=== PATIENT | female | born 1935 | race African-American/Black ===

== ENCOUNTER 2017-02-14 08:39 | Outpatient (CLI) | payer MEDICARE ==
[2017-02-14 10:02] LABS: ALT (SGPT) 8 U/L (0-55); AST (SGOT) 12 U/L (5-34); Albumin 4.1 g/dL (3.4-4.8); Alkaline Phosphatase 60 U/L (40-150); Anion Gap 15 mmol/L (10-20); BUN (Urea Nitrogen) 10 mg/dL (9.8-20.1); Bilirubin, Total 0.9 mg/dL (0.2-1.2); Calc. Creatinine Clearance 0 mL/min (70-130); Calcium 9.5 mg/dL (7.8-10.44); Carbon Dioxide 31 mmol/L (23-31); Cardiac Risk 3.2 (Less than 4.5); Chloride 100 mmol/L (98-107); Cholesterol 227 mg/dL (< 200 Desired); Estimated GFR-MDRD 81; Globulin 2.6 g/dL (2.4-3.5); Glucose 92 mg/dL (83-110); HDL Cholesterol 72 mg/dL (>60 Neg Risk); LDL Cholesterol, Calculated 133 mg/dL; Potassium 4.4 mmol/L (3.5-5.1); Protein, Total 6.7 g/dL (5.8-8.1); Sodium 142 mmol/L (136-145); Triglycerides 111 mg/dL (Less than 150)
[2017-02-14 10:39] LABS: #Lymphocytes 2.6 thou/uL (1.20-3.40); #Neutrophils 5.3 thou/uL (1.40-6.50); %Basophils 0.5 % (0.0-1.0); %Eosinophils 0.5 % (0.0-10.0); %Lymphocytes 28.9 % (21.0-51.0); %Monocytes 10.9 % (0.0-10.0); %Neutrophils 59.2 % (42.0-75.0); Hemoglobin 15.7 g/dL (12.0-16.0); Mean Corpuscular HGB CONC 31.7 g/dL (32.0-36.0); Mean Corpuscular Hemoglobin 28.5 pg (27.0-31.0); Mean Corpuscular Volume 90.1 fl (81.0-99.0); Mean Platelet Volume 8.7 fL (7.4-10.4); Platelet Count 248 thou/uL (130-400); RBC Distribution Width 14.7 % (11.5-14.5); Red Blood Cell (RBC) Count 5.51 mill/uL (4.20-5.40)
== END 2017-02-14 08:40 | disposition home or self-care (01) ==
LOC: HPCALD 08:39
PROVIDERS: ATTEND Family Medicine
DX: Z00.00 Encounter for general adult medical examination without abnormal findings (principal); E78.5 Hyperlipidemia, unspecified
CPT/HCPCS: 36415; 80053; 80061; 85025

== ENCOUNTER 2017-09-20 11:13 | Emergency (ER) | payer MEDICARE ==
[2017-09-20] MEDS ORDERED: methylPREDNISolone Sod Succ/PF 125 MG/2 ML VIAL ONE (11:31)
[2017-09-20 11:40] LABS: #Basophils 0.1 thou/uL (0.0-0.2); #Eosinphils 0.1 thou/uL (0.0-0.7); #Neutrophils 5.8 thou/uL (1.40-6.50); %Basophils 1.1 % (0.0-1.0); %Eosinophils 1.4 % (0.0-10.0); %Lymphocytes 29.9 % (21.0-51.0); %Monocytes 9.6 % (0.0-10.0); %Neutrophils 58.1 % (42.0-75.0); Hemoglobin 14.5 g/dL (12.0-16.0); Mean Corpuscular HGB CONC 32.2 g/dL (32.0-36.0); Mean Corpuscular Hemoglobin 28.1 pg (27.0-31.0); Mean Corpuscular Volume 87.4 fl (81.0-99.0); Platelet Count 276 thou/uL (130-400); RBC Distribution Width 13.2 % (11.5-14.5); Red Blood Cell (RBC) Count 5.16 mill/uL (4.20-5.40)
[2017-09-20 11:41] LABS: Base Excess 12.4 mEq/L (-2 - +2); pH (venous) 7.48 (7.35-7.45)
[2017-09-20 11:42] LABS: Hemoglobin (Hb) 14.9 g/dL (11.7-16.1)
[2017-09-20 11:49] LABS: ALT (SGPT) 8 U/L (8-55); AST (SGOT) 16 U/L (5-34); Albumin 3.9 g/dL (3.4-4.8); Alkaline Phosphatase 72 U/L (40-150); Anion Gap 15 mmol/L (10-20); BUN (Urea Nitrogen) 5 mg/dL (9.8-20.1); Bilirubin, Total 0.5 mg/dL (0.2-1.2); Calc. Creatinine Clearance 0 mL/min (70-130); Calcium 9.3 mg/dL (7.8-10.44); Carbon Dioxide 37 mmol/L (23-31); Chloride 95 mmol/L (98-107); Estimated GFR-MDRD Greater than 90; Glucose 90 mg/dL (83-110); Protein, Total 6.9 g/dL (6.0-8.3); Sodium 144 mmol/L (136-145)
[2017-09-20 11:51] LABS: CKMB 2.2 ng/mL (0-6.6); Potassium 2.7 mmol/L (3.5-5.1); Troponin I 0.012 ng/mL (< 0.028)
[2017-09-20] MEDS ORDERED: Potassium Chloride 20 MEQ TAB ONE (12:00)
[2017-09-20] MEDS ORDERED: Potassium Chloride 20 MEQ/100 ML PREMIX BAG ONE (12:00)
--- NOTE | 2017-09-20 14:55 | RAD ---
FRONTAL RADIOGRAPH CHEST: DATE: 09/20/17. COMPARISON: 07/10/16. HISTORY: Short of breath. FINDINGS: There is mild pulmonary vascular congestion. There is mild perihilar and bibasilar interstitial prom inence which may signify mild interstitial edema in the proper clinical setting. There is no pneumot horax, lobar consolidation, or alveolar edema. Stable prominence of the cardiac silhouette noted. IMPRESSION: Prominent cardiac silhouette with pulmonary vascular congestion and perihilar interstitial prominence as detailed above. POS: [place]
== END 2017-09-20 13:36 | disposition short-term general hospital (02) ==
LOC: BURERS 11:13
DX: J44.1 Chronic obstructive pulmonary disease with (acute) exacerbation (principal); E78.5 Hyperlipidemia, unspecified; F17.210 Nicotine dependence, cigarettes, uncomplicated; I10 Essential (primary) hypertension; K21.9 Gastro-esophageal reflux disease without esophagitis; Z79.899 Other long term (current) drug therapy
CPT/HCPCS: 71010; 80053; 82553; 82805; 83880; 84484; 85025; 96365; 96375; J2930; J3480; J7620

== ENCOUNTER 2019-03-15 16:19 | Emergency (ER) | payer MEDICARE, MEDICAID ==
[2019-03-15] MEDS ORDERED: methylPREDNISolone Sod Succ/PF 125 MG/2 ML VIAL ONE (16:30)
[2019-03-15 16:36] LABS: #Basophils 0.1 thou/uL (0.0-0.2); #Lymphocytes 1.3 thou/uL (1.20-3.40); #Monocytes 0.9 thou/uL (0.11-0.59); #Neutrophils 4.2 thou/uL (1.40-6.50); %Basophils 1.2 % (0.0-1.0); %Eosinophils 0.3 % (0.0-10.0); %Lymphocytes 19.6 % (21.0-51.0); %Monocytes 13.4 % (0.0-10.0); %Neutrophils 65.6 % (42.0-75.0); Hemoglobin 15.4 g/dL (12.0-16.0); Mean Corpuscular HGB CONC 30.7 g/dL (32.0-36.0); Mean Platelet Volume 9.5 fL (7.4-10.4); Platelet Count 176 thou/uL (130-400); RBC Distribution Width 13.2 % (11.5-14.5); Red Blood Cell (RBC) Count 5.71 mill/uL (4.20-5.40); White Blood Cell (WBC) Count 6.5 thou/uL (4.8-10.8)
[2019-03-15 16:53] LABS: ALT (SGPT) 11 U/L (8-55); AST (SGOT) 23 U/L (5-34); Albumin 4.3 g/dL (3.4-4.8); Alkaline Phosphatase 68 U/L (40-150); Anion Gap 15 mmol/L (10-20); BUN (Urea Nitrogen) 7 mg/dL (9.8-20.1); Bilirubin, Total 0.5 mg/dL (0.2-1.2); Calc. Creatinine Clearance 0 mL/min (70-130); Calcium 9.2 mg/dL (7.8-10.44); Carbon Dioxide 28 mmol/L (23-31); Chloride 99 mmol/L (98-107); Estimated GFR-MDRD 90; Globulin 3.2 g/dL (2.4-3.5); Glucose 102 mg/dL (83-110); Potassium 3.7 mmol/L (3.5-5.1); Protein, Total 7.5 g/dL (6.0-8.3); Sodium 138 mmol/L (136-145)
[2019-03-15] MEDS ORDERED: Piperacillin/Tazobactam 4.5 GM VIAL ONE (17:10)
[2019-03-15] MEDS ORDERED: Sodium Chloride 0.9% 100 ML ONE (17:10)
[2019-03-15] MEDS ORDERED: Acetaminophen 500 MG TAB ONE (17:10)
--- NOTE | 2019-03-15 17:39 | RAD ---
PORTABLE CHEST: Date: 03-15-19 An AP portable film at 1632 is compared with an 09-20-17 exam. FINDINGS: The heart size is unchanged. There is no vascular congestion, edema, or pleural effusion. The lungs a re hyperexpanded but clear. There is a little haziness or blunting in the right costophrenic angle, b ut I cannot absolutely confirm pathology here at this time. There is certainly no edema or congestion of the vessels. If symptoms continue, then a PA and lateral view to show the right base better could be helpful. IMPRESSION: Hyperexpanded lungs but no definite acute findings. See above. POS: HOME
== END 2019-03-15 18:45 | disposition short-term general hospital (02) ==
LOC: BURERS 16:19
DX: J18.1 Lobar pneumonia, unspecified organism (principal); J44.1 Chronic obstructive pulmonary disease with (acute) exacerbation; K21.9 Gastro-esophageal reflux disease without esophagitis; E78.5 Hyperlipidemia, unspecified; I10 Essential (primary) hypertension; F17.210 Nicotine dependence, cigarettes, uncomplicated; Z79.899 Other long term (current) drug therapy; Z79.51 Long term (current) use of inhaled steroids
CPT/HCPCS: 36415; 71045; 80053; 83605; 83880; 84484; 85025; 87040; 93005; 96365; 96375; J2543; J2930; J3370; J3490; J7620

== ENCOUNTER 2019-06-03 11:13 | Emergency (ER) | payer MEDICARE, MEDICAID ==
[2019-06-03 11:46] LABS: #Eosinphils 0.1 thou/uL (0.0-0.7); #Lymphocytes 1.5 thou/uL (1.20-3.40); #Monocytes 0.9 thou/uL (0.11-0.59); #Neutrophils 6.1 thou/uL (1.40-6.50); %Basophils 0.4 % (0.0-1.0); %Eosinophils 0.8 % (0.0-10.0); %Lymphocytes 17.2 % (21.0-51.0); %Monocytes 10.7 % (0.0-10.0); %Neutrophils 70.8 % (42.0-75.0); Hemoglobin 14.6 g/dL (12.0-16.0); Mean Corpuscular HGB CONC 31.3 g/dL (32.0-36.0); Mean Corpuscular Hemoglobin 27.5 pg (27.0-31.0); Mean Corpuscular Volume 87.8 fL (78.0-98.0); Mean Platelet Volume 9.7 fL (7.4-10.4); Platelet Count 206 thou/uL (130-400); RBC Distribution Width 13.1 % (11.5-14.5); Red Blood Cell (RBC) Count 5.29 mill/uL (4.20-5.40); White Blood Cell (WBC) Count 8.7 thou/uL (4.8-10.8)
[2019-06-03] MEDS ORDERED: methylPREDNISolone Sod Succ/PF 125 MG/2 ML VIAL ONE (11:49)
[2019-06-03 12:00] LABS: INR-International Normal Ratio 1.1; PTT 38.6 SEC (22.9-36.1); Prothrombin Time 14.3 SEC (12.0-14.7)
[2019-06-03 12:05] LABS: Bicarbonate (HCO3v) 36.6 mmol/L (22.0-28.0); CO2 Tension (PvCO2) 54.4 mmHg (40.0-50.0); Calcium, Ionized 1.14 mmol/L (See Comments:); Chloride 96 mmol/L (98-107); Hemoglobin - Calc 16.6 g/dL (12.0-16.0); Potassium 2.8 mmol/L (3.5-5.1); Sodium 141 mmol/L (138-145); T. Carbon Dioxide 38.3 mmol/L (22.0-28.0); vO2 Saturation-calc 88.5 % (60.0-85.0)
[2019-06-03 12:10] LABS: ALT (SGPT) Less than 7 U/L (8-55); AST (SGOT) 12 U/L (5-34); Alkaline Phosphatase 74 U/L (40-150); Anion Gap 14 mmol/L (10-20); BUN (Urea Nitrogen) Less than 4 mg/dL (9.8-20.1); Calc. Creatinine Clearance 0 mL/min (70-130); Calcium 9.4 mg/dL (7.8-10.44); Carbon Dioxide 34 mmol/L (23-31); Chloride 97 mmol/L (98-107); Estimated GFR-MDRD Greater than 90; Globulin 2.9 g/dL (2.4-3.5); Glucose 105 mg/dL (83-110); Protein, Total 6.9 g/dL (6.0-8.3); Sodium 142 mmol/L (136-145)
[2019-06-03] MEDS ORDERED: Potassium Chloride 20 MEQ/100 ML PREMIX BAG ONE (12:28)
--- NOTE | 2019-06-03 17:28 | RAD ---
PORTABLE CHEST: Date: 06/03/19 An AP portable film at 1147 hours is compared with the 03/15/19 study. The heart size is stable. There is no vascular congestion or edema. The mediastinum is unremarkable. There has been no adverse change since the prior exam. IMPRESSION: Stable exam, showing no acute findings. POS: HOME
[2019-06-04 11:26] LABS: Actual Bicarbonate (HCO3a) 34.8 mEq/L (22-28); Base Excess (BEa) 8.4 mEq/L (-2.0 to +3.0); CO2 Tension 55.1 mmHg (35.0-45.0); Calcium, Ionized 1.17 mmol/L (1.12-1.30); Carboxyhemoglobin (COHb) 1.5 gm% (0.0-3.0); Hemoglobin (Hb) 14.4 g/dL (12.0-16.0); O2 Tension (PaO2) 63.2 mmHg (> 60.0); Potassium - ABG Lab 3.12 mmol/L (3.70-5.30); pH, Arterial 7.42 (7.35-7.45)
[2019-06-04 11:29] LABS: Puncture Site LBA
== END 2019-06-03 13:12 | disposition short-term general hospital (02) ==
LOC: BURERS 11:13
DX: J44.1 Chronic obstructive pulmonary disease with (acute) exacerbation (principal); K21.9 Gastro-esophageal reflux disease without esophagitis; E78.5 Hyperlipidemia, unspecified; I10 Essential (primary) hypertension; F17.210 Nicotine dependence, cigarettes, uncomplicated; Z79.51 Long term (current) use of inhaled steroids; Z79.899 Other long term (current) drug therapy
CPT/HCPCS: 71045; 80053; 82330; 82435; 82803; 82805; 83880; 84132; 84295; 84484; 85014; 85025; 85610; 85730; 87804; 93005; 94660; 94760; 96365; 96367; 96375; J2930; J3480; J7620

== ENCOUNTER 2019-09-08 12:15 | Inpatient (IN) | payer MEDICARE, MEDICAID ==
[2019-09-08] MEDS ORDERED: Piperacillin/Tazobactam 4.5 GM VIAL ONE (12:52)
[2019-09-08] MEDS ORDERED: Acetaminophen 500 MG TAB ONE (12:52)
[2019-09-08] MEDS ORDERED: Sodium Chloride 0.9% 100 ML ONE (12:53)
[2019-09-08 12:56] LABS: #Basophils 0.1 thou/uL (0.0-0.2); #Lymphocytes 1.2 thou/uL (1.20-3.40); #Monocytes 1.3 thou/uL (0.11-0.59); #Neutrophils 10.3 thou/uL (1.40-6.50); %Basophils 0.9 % (0.0-1.0); %Lymphocytes 9.6 % (21.0-51.0); %Monocytes 9.7 % (0.0-10.0); %Neutrophils 79.9 % (42.0-75.0); Hemoglobin 14.8 g/dL (12.0-16.0); Mean Corpuscular HGB CONC 31.4 g/dL (32.0-36.0); Mean Corpuscular Hemoglobin 27.2 pg (27.0-31.0); Mean Corpuscular Volume 86.6 fL (78.0-98.0); Mean Platelet Volume 10.5 fL (7.4-10.4); Platelet Count 216 thou/uL (130-400); RBC Distribution Width 13.2 % (11.5-14.5); Red Blood Cell (RBC) Count 5.45 mill/uL (4.20-5.40); White Blood Cell (WBC) Count 12.9 thou/uL (4.8-10.8)
[2019-09-08 13:02] LABS: Base Excess-Venous 4.7 mmol/L (-2.0 to 3.0); Bicarbonate (HCO3v) 30.6 mmol/L (22.0-28.0); CO2 Tension (PvCO2) 48.5 mmHg (40.0-50.0); Calcium, Ionized 1.14 mmol/L (See Comments:); Chloride 100 mmol/L (98-107); Hemoglobin - Calc 16.8 g/dL (12.0-16.0); Potassium 3.4 mmol/L (3.5-5.1); Sodium 138 mmol/L (138-145); T. Carbon Dioxide 32.1 mmol/L (22.0-28.0)
[2019-09-08 13:07] LABS: ALT (SGPT) 8 U/L (8-55); AST (SGOT) 13 U/L (5-34); Albumin 4.2 g/dL (3.4-4.8); Alkaline Phosphatase 79 U/L (40-110); Anion Gap 18 mmol/L (10-20); BUN (Urea Nitrogen) 8 mg/dL (9.8-20.1); Bilirubin, Total 1.9 mg/dL (0.2-1.2); Calc. Creatinine Clearance 0 mL/min (70-130); Calcium 9.7 mg/dL (7.8-10.44); Carbon Dioxide 27 mmol/L (23-31); Chloride 98 mmol/L (98-107); Estimated GFR-MDRD Greater than 90; Globulin 3.3 g/dL (2.4-3.5); Glucose 96 mg/dL (83-110); Potassium 3.6 mmol/L (3.5-5.1); Protein, Total 7.5 g/dL (6.0-8.3); Sodium 139 mmol/L (136-145)
[2019-09-08 13:14] LABS: Bilirubin Small (Negative); Blood, Urine Moderate (Negative); Clarity Clear (Clear); Glucose, Urine (Dipstick) Negative (Negative); Leukocyte Negative (Negative); Nitrite Negative (Negative); Protein, Urine (Dipstick) 30 mg/dL (Neg-Trace)
[2019-09-08 13:21] LABS: Squamous Epithelial 0-3 HPF (0-3); WBC/HPF 0-3 HPF (0-3)
[2019-09-08 13:22] LABS: Bacteria/HPF 2+ HPF (None Seen); Mucous/LPF 4+ LPF (<2+)
[2019-09-08] MEDS ORDERED: methylPREDNISolone Sod Succ/PF 125 MG/2 ML VIAL ONE (14:00)
[2019-09-08] MEDS ORDERED: Oseltamivir 75 MG CAP ONE (14:00)
[2019-09-08] MEDS ORDERED: Acetaminophen 325 MG TAB PO PRN (17:19)
[2019-09-08] MEDS ORDERED: Nicotine 21 MG PATCH TD SCH (18:00)
[2019-09-08] MEDS ORDERED: Colchicine 0.6 MG TAB PO SCH ×3 (18:00→21:00)
--- NOTE | 2019-09-08 19:07 | RAD ---
PORTABLE CHEST: 09/08/19 An AP portable film at 1239 is compared with an 06/03/19 study. Emphysematous changes are present as usual. The heart size is normal for an AP film. There is no joel estive change. There might be a very small amount of pleural fluid in the lung bases, but this is unc ertain. Minor basilar haziness is no different than before. I do not see any acute infiltrate to conf idently diagnose pneumonia. IMPRESSION: Chronic changes but no definite acute findings. POS: HOME
--- NOTE | 2019-09-08 19:11 | RAD ---
LEFT FOOT THREE VIEWS: 09/08/19 No acute fracture or periosteal reaction was seen. There may have been an old injury at the base of t he proximal phalanx of the great toe. A calcaneal spur is present. IMPRESSION: Old changes, but no acute findings. POS: HOME
[2019-09-08] MEDS: Piperacillin/Tazobactam 3.375 GM in Sodium Chloride 0.9% 100 ML IVPB SCH (19:38)
[2019-09-08] MEDS ORDERED: Oseltamivir 75 MG CAP PO SCH (21:00)
[2019-09-08] MEDS ORDERED: Albuterol Sulfate 2.5 mg/3 ml Neb NEB SCH (21:00)
[2019-09-08] MEDS: methylPREDNISolone Sod Succ/PF 125 MG/2 ML VIAL IVP SCH (21:20)
[2019-09-08] MEDS: guaiFENesin ER 600 MG TAB PO SCH (21:21)
[2019-09-08] MEDS: Atorvastatin Calcium 10 MG TAB PO SCH (21:22)
--- NOTE | 2019-09-08 21:50 | HP ---
CHIEF COMPLAINT: Dyspnea with left foot pain. HISTORY OF PRESENT ILLNESS: An 84-year-old female with underlying oxygen- dependent COPD, presented to the [facility] Emergency Department earlier today with two primary complaints including worsening respiratory status including shortness of breath and intermittent cough along with focal pain to the dorsum of the left foot, progressing over the last 1 to 2 weeks of unknown etiology. The patient denies having any notable injury to cause the pain located to her left foot. She does have localized swelling to the area of her pain; however, there is no erythema or ecchymosis, but there is tenderness to palpation. The patient's daughters were present and they reported the patient had gradually worsening pain to this area to the point that she has been unable to effectively bear weight on the foot as of today. In regard to the patient's respiratory status, she did have flu testing in the emergency department, which was negative. Further testing did reveal a leukocytosis with left shift along with some bacteria in her urine. Her chest x -ray is concerning for bibasilar pneumonia as a preliminary read. She was provided Solu-Medrol IV, Levaquin, Zosyn and DuoNeb treatment in the emergency department. Her vital signs were notably abnormal with a T-max of 101.0 along with mild tachycardia and mild tachypnea. Secondary to the patient's respiratory status, she has been admitted for further care in regard to COPD exacerbation and pneumonia. PAST MEDICAL HISTORY: Include COPD, for which she is oxygen dependent, hypertension, dyslipidemia, memory impairment. PAST SURGICAL HISTORY: Cholecystectomy. FAMILY HISTORY: Noncontributory. SOCIAL HISTORY: The patient has been a chronic smoker and continues to do so. Denies EtOH or illicit drug use. ALLERGIES: NO KNOWN DRUG ALLERGIES. CURRENT MEDICATIONS: Include; 1. Ventolin inhaler q.4 hours p.r.n. 2. Atorvastatin 20 mg at bedtime. 3. Losartan 50 mg daily. 4. Meloxicam 15 mg daily. 5. Protonix 40 mg daily. 6. Daliresp 500 mg daily. REVIEW OF SYSTEMS: GENERAL: The patient complains of fever. She denies body aches. EARS, NOSE, AND THROAT: Complains of nasal congestion. Denies sore throat. CARDIOVASCULAR: Denies chest pain, or palpitations. RESPIRATORY: Complains of shortness of breath and cough. GASTROINTESTINAL: Denies abdominal pain, nausea, vomiting, diarrhea, or constipation. GENITOURINARY: Denies dysuria. MUSCULOSKELETAL: Complains of focal pain to the dorsum of the left foot. DERMATOLOGIC: Denies rash. NEUROLOGIC: Denies headache. LABORATORY DATA: White blood cell count is 12.9, hemoglobin is 14.8, hematocrit 47.2, platelets 216. Sodium 139, potassium 3.6, BUN is 8, creatinine 0.73, GFR is greater than 90, glucose 96, lactic acid 1.0, AST 13, ALT 8. Troponin is less than 0.010. BNP is 52.5. Flu testing was negative. Urine shows 2+ bacteria, but negative for nitrites or leukocyte esterase, moderate blood with ketones present. IMAGING: Pending radiological read in regard to her chest x-ray and left foot x -ray. PHYSICAL EXAMINATION: VITAL SIGNS: Temperature is 98.9, pulse is 86, respiratory rate 18, oxygen is 94% on 2 L, blood pressure is 126/61. GENERAL: The patient is alert and oriented, in no acute distress. Diaphoretic to her back. HEENT: She is hard of hearing. Eyes, conjunctivae are clear. Sclerae are clear. Extraocular muscles are intact bilaterally. Normocephalic and atraumatic. Moist mucous membranes. No oropharyngeal erythema. NECK: Supple without lymphadenopathy. CARDIOVASCULAR: She has distant heart sounds. Regular rate and rhythm. Normal S1, S2 without murmurs. RESPIRATORY: Diminished breath sounds throughout. She has a prolonged expiratory phase with end-expiratory wheezes. She has faint crackles to the bilateral bases. She has a nasal cannula in place. GASTROINTESTINAL: Soft, nontender to palpation. No masses. EXTREMITIES: No clubbing or cyanosis. She has edema with tenderness to palpation to the dorsum of the left foot without erythema or ecchymosis. MUSCULOSKELETAL: Crepitus to bilateral knees. SKIN: No rashes. NEUROLOGIC: Nonfocal with cranial nerves 2 through 12 grossly intact. ASSESSMENT AND PLAN: 1. Chronic obstructive pulmonary disease exacerbation. The patient is pending chest x-ray reading with concern for pneumonia and thus she has been started on empiric antibiotics with Levaquin and Zosyn. She has scheduled nebulized treatments and will resume Trelegy, which she takes at home. She has supplemental oxygen at baseline. We will provide the patient with an incentive spirometer. We will also order PT and OT so that the patient can mobilize to prevent physical deconditioning. 2. Urinary tract infection. We will follow the patient's urine culture. 3. Left foot pain. Official x-ray is pending; however, preliminary read did not show concern for fracture. I suspect she could have gout and we will treat accordingly with colchicine and as noted, she will be receiving IV Solu-Medrol as well. I will check the uric acid level with morning labs. 4. Hypertension. The patient is hemodynamically stable with blood pressure at goal. Resume losartan. 5. Dyslipidemia. We will resume the patient's statin. 6. Prophylaxis. The patient will be continued on her Protonix for GI prophylaxis and Lovenox for DVT prophylaxis. She also had SCDs in place. 7. Code status is full. Job ID: [id number] MTDD
[2019-09-09] MEDS: Piperacillin/Tazobactam 3.375 GM in Sodium Chloride 0.9% 100 ML IVPB SCH (01:24)
[2019-09-09 05:35] LABS: #Lymphocytes 0.7 thou/uL (1.20-3.40); #Monocytes 0.5 thou/uL (0.11-0.59); #Neutrophils 9.2 thou/uL (1.40-6.50); %Basophils 0.3 % (0.0-1.0); %Lymphocytes 6.7 % (21.0-51.0); %Monocytes 4.3 % (0.0-10.0); %Neutrophils 88.7 % (42.0-75.0); Hemoglobin 13.8 g/dL (12.0-16.0); Mean Corpuscular HGB CONC 31.2 g/dL (32.0-36.0); Mean Corpuscular Volume 86.4 fL (78.0-98.0); Mean Platelet Volume 11.6 fL (7.4-10.4); Platelet Count 195 thou/uL (130-400); RBC Distribution Width 13.3 % (11.5-14.5); Red Blood Cell (RBC) Count 5.12 mill/uL (4.20-5.40); White Blood Cell (WBC) Count 10.4 thou/uL (4.8-10.8)
[2019-09-09 05:48] LABS: ALT (SGPT) Less than 7 U/L (8-55); AST (SGOT) 11 U/L (5-34); Albumin 3.5 g/dL (3.4-4.8); Alkaline Phosphatase 63 U/L (40-110); Anion Gap 13 mmol/L (10-20); BUN (Urea Nitrogen) 10 mg/dL (9.8-20.1); Calc. Creatinine Clearance 0 mL/min (70-130); Calcium 9.1 mg/dL (7.8-10.44); Carbon Dioxide 28 mmol/L (23-31); Chloride 100 mmol/L (98-107); Estimated GFR-MDRD 88; Globulin 2.9 g/dL (2.4-3.5); Glucose 140 mg/dL (83-110); Potassium 3.3 mmol/L (3.5-5.1); Protein, Total 6.4 g/dL (6.0-8.3); Sodium 138 mmol/L (136-145); Uric Acid 2.5 mg/dL (2.6-6.0)
[2019-09-09] MEDS: methylPREDNISolone Sod Succ/PF 125 MG/2 ML VIAL IVP SCH ×3 (06:30→20:31)
[2019-09-09] MEDS ORDERED: Potassium Chloride 20 MEQ TAB PO SCH (07:45)
[2019-09-09] MEDS: guaiFENesin ER 600 MG TAB PO SCH ×2 (08:16→20:30)
[2019-09-09] MEDS: Enoxaparin Sodium 40 MG/0.4 ML SYRINGE SC SCH (08:17)
[2019-09-09] MEDS: Losartan Potassium 50 MG TAB PO SCH (08:17)
[2019-09-09] MEDS: Meloxicam 7.5 MG TAB PO SCH (08:17)
[2019-09-09] MEDS: Nicotine 21 MG PATCH TD SCH (08:18)
[2019-09-09] MEDS ORDERED: Non-Formulary Item 1 EACH (Fluticasone/Umeclidin/Vilanter [Trelegy Ellipta 100-62.5-25] 1 IH SCH (09:00)
[2019-09-09] MEDS: ROFLUMILAST 500 MG PO SCH (10:38)
[2019-09-09] MEDS: VILANTER INH SCH (10:40)
[2019-09-09] MEDS: FLUTICASONE INH SCH (10:40)
[2019-09-09] MEDS: UMECLIDIN INH SCH (10:40)
[2019-09-09] MEDS ORDERED: Prevnar 13-Val Conj/PF 0.5 ML SYRINGE IM ONE (16:15)
[2019-09-09 19:08] VITALS: BMI 23.4
[2019-09-09] MEDS: Atorvastatin Calcium 10 MG TAB PO SCH (20:30)
[2019-09-10 05:00] LABS: #Basophils 0.1 thou/uL (0.0-0.2); #Lymphocytes 0.7 thou/uL (1.20-3.40); #Monocytes 0.7 thou/uL (0.11-0.59); %Basophils 0.5 % (0.0-1.0); %Lymphocytes 5.4 % (21.0-51.0); %Monocytes 4.9 % (0.0-10.0); %Neutrophils 89.2 % (42.0-75.0); Hemoglobin 12.8 g/dL (12.0-16.0); Mean Corpuscular HGB CONC 32.2 g/dL (32.0-36.0); Mean Corpuscular Hemoglobin 27.8 pg (27.0-31.0); Mean Corpuscular Volume 86.3 fL (78.0-98.0); Mean Platelet Volume 10.5 fL (7.4-10.4); Platelet Count 206 thou/uL (130-400); RBC Distribution Width 13.2 % (11.5-14.5); Red Blood Cell (RBC) Count 4.63 mill/uL (4.20-5.40); White Blood Cell (WBC) Count 13.4 thou/uL (4.8-10.8)
[2019-09-10 05:18] LABS: Anion Gap 13 mmol/L (10-20); BUN (Urea Nitrogen) 15 mg/dL (9.8-20.1); Calc. Creatinine Clearance 50 mL/min (70-130); Calcium 8.8 mg/dL (7.8-10.44); Carbon Dioxide 28 mmol/L (23-31); Chloride 101 mmol/L (98-107); Estimated GFR-MDRD 81; Glucose 145 mg/dL (83-110); Potassium 3.5 mmol/L (3.5-5.1); Sodium 138 mmol/L (136-145)
[2019-09-10] MEDS: methylPREDNISolone Sod Succ/PF 125 MG/2 ML VIAL IVP SCH ×2 (05:47→12:59)
[2019-09-10] MEDS: Saccharomyces boulardii 250 MG CAP PO SCH (08:17)
[2019-09-10] MEDS: guaiFENesin ER 600 MG TAB PO SCH (08:17)
[2019-09-10] MEDS: Nicotine 21 MG PATCH TD SCH (08:17)
[2019-09-10] MEDS: Meloxicam 7.5 MG TAB PO SCH (08:17)
[2019-09-10] MEDS: Losartan Potassium 50 MG TAB PO SCH (08:18)
[2019-09-10] MEDS: Enoxaparin Sodium 40 MG/0.4 ML SYRINGE SC SCH (08:18)
[2019-09-10] MEDS: Potassium Chloride 20 MEQ TAB PO SCH (08:18)
[2019-09-10] MEDS: ROFLUMILAST 500 MG PO SCH (08:22)
[2019-09-10] MEDS: FLUTICASONE INH SCH (08:24)
[2019-09-10] MEDS: VILANTER INH SCH (08:24)
[2019-09-10] MEDS: UMECLIDIN INH SCH (08:24)
--- NOTE | 2019-09-10 15:01 | RAD ---
CHEST 2 VIEWS: Date: 09/10/19 Comparison made with the 09/08/19 portable film. There seems to be a little extra streaking in the right base, and on the lateral view, there appears to be some retrocardiac streaking. A small infiltrate here is suspected. COPD is present. The heart i s upper normal to mildly enlarged, but there are no congestive changes. There are no large pleural ef fusions. IMPRESSION: Suspicion of a right basilar retrocardiac infiltrate. POS: HOME
[2019-09-11] MEDS: methylPREDNISolone Sod Succ/PF 125 MG/2 ML VIAL IVP SCH ×3 (00:51→13:35)
[2019-09-11] MEDS: Atorvastatin Calcium 10 MG TAB PO SCH (00:52)
[2019-09-11] MEDS: guaiFENesin ER 600 MG TAB PO SCH ×2 (00:52→08:58)
[2019-09-11] MEDS ORDERED: guaiFENesin ER 600 MG TAB PO SCH (01:00)
[2019-09-11] MEDS ORDERED: Atorvastatin Calcium 10 MG TAB PO SCH (01:00)
[2019-09-11 05:23] LABS: #Lymphocytes 0.6 thou/uL (1.20-3.40); #Monocytes 0.3 thou/uL (0.11-0.59); #Neutrophils 7.1 thou/uL (1.40-6.50); %Basophils 0.3 % (0.0-1.0); %Lymphocytes 6.9 % (21.0-51.0); %Monocytes 3.7 % (0.0-10.0); %Neutrophils 89.1 % (42.0-75.0); Hemoglobin 12.7 g/dL (12.0-16.0); Mean Corpuscular HGB CONC 32.1 g/dL (32.0-36.0); Mean Corpuscular Hemoglobin 27.4 pg (27.0-31.0); Mean Corpuscular Volume 85.4 fL (78.0-98.0); Mean Platelet Volume 9.4 fL (7.4-10.4); Platelet Count 221 thou/uL (130-400); RBC Distribution Width 13.3 % (11.5-14.5); Red Blood Cell (RBC) Count 4.64 mill/uL (4.20-5.40)
[2019-09-11 05:32] LABS: ALT (SGPT) 8 U/L (8-55); AST (SGOT) 11 U/L (5-34); Albumin 3.3 g/dL (3.4-4.8); Alkaline Phosphatase 50 U/L (40-110); Anion Gap 13 mmol/L (10-20); BUN (Urea Nitrogen) 19 mg/dL (9.8-20.1); Bilirubin, Total 0.2 mg/dL (0.2-1.2); Calc. Creatinine Clearance 53 mL/min (70-130); Calcium 8.7 mg/dL (7.8-10.44); Carbon Dioxide 27 mmol/L (23-31); Chloride 106 mmol/L (98-107); Estimated GFR-MDRD 87; Globulin 2.5 g/dL (2.4-3.5); Glucose 121 mg/dL (83-110); Potassium 3.7 mmol/L (3.5-5.1); Protein, Total 5.8 g/dL (6.0-8.3); Sodium 142 mmol/L (136-145)
[2019-09-11 06:24] VITALS: TEMP 97.8
[2019-09-11] MEDS: Saccharomyces boulardii 250 MG CAP PO SCH (08:55)
[2019-09-11] MEDS: Nicotine 21 MG PATCH TD SCH (08:55)
[2019-09-11] MEDS: Enoxaparin Sodium 40 MG/0.4 ML SYRINGE SC SCH (08:57)
[2019-09-11] MEDS: Potassium Chloride 20 MEQ TAB PO SCH (08:58)
[2019-09-11] MEDS: Meloxicam 7.5 MG TAB PO SCH (08:59)
[2019-09-11] MEDS: Losartan Potassium 50 MG TAB PO SCH (08:59)
[2019-09-11] MEDS: ROFLUMILAST 500 MG PO SCH (09:00)
[2019-09-11] MEDS: UMECLIDIN INH SCH (09:06)
[2019-09-11] MEDS: FLUTICASONE INH SCH (09:06)
[2019-09-11] MEDS: VILANTER INH SCH (09:06)
[2019-09-11 17:01] VITALS: BP 149/70
--- NOTE | 2019-09-13 07:23 | DIS ---
DATE OF ADMISSION: 09/08/2019 DATE OF DISCHARGE: 09/11/2019 ADMISSION DIAGNOSES: 1. Chronic obstructive pulmonary disease exacerbation. 2. Urinary tract infection. 3. Left foot pain. 4. Hypertension. 5. Dyslipidemia. 6. Tobacco abuse. DISCHARGE DIAGNOSES: 1. Chronic obstructive pulmonary disease exacerbation. 2. Urinary tract infection, ruled out. 3. Microscopic hematuria. 4. Left foot pain, resolved. 5. Hypertension. 6. Dyslipidemia. 7. Hypokalemia. 8. Campylobacter enteritis. 9. Community-acquired pneumonia, right lower lobe. 10. Tobacco abuse. ATTENDING PHYSICIAN: Dr. Devin Che with Dr. Venus West covering physician on the date of discharge. PROCEDURES: 1. Chest x-ray from the date of admission showing chronic changes, but no definite acute findings. 2. Foot x-ray from the date of admission on the left showing old changes, but no acute findings. 3. Chest x-ray on September 10, 2019, with suspicion of a right basilar retrocardiac infiltrate. 4. Blood culture x2 negative at 48 hours. 5. Urine culture per straight cath negative at 36 hours. 6. Influenza A and B negative. 7. C difficile antigen and toxins negative. 8. Campylobacter positive. 9. Shiga toxin negative x2. HISTORY AND PHYSICAL: Please see dictated report from Dr. Devin Che from the date of admission. HOSPITAL COURSE: Ms. Jean-Baptiste is an 84-year-old female with a past medical history of chronic respiratory failure from COPD, who is home O2 dependent, who presented to the [facility] with a chief complaint of left foot pain and swelling. Upon presentation, the patient had suspected possible infiltrate on her x-ray and suspicion for COPD acute exacerbation. She was placed on Levaquin and methylprednisolone per IV, continued on oxygen and her chronic pulmonary medications, which included Trelegy and Daliresp. The patient's respiratory status improved. Due to the positioning of the infiltrate, questioning with the patient and daughter regarding the possibility of aspiration was performed. The patient had had a previous speech therapy evaluation in May with no special diet instructions other than sitting up to eat. Therefore, this was not performed at this admission. The patient did not display cough with meals per nursing. Her respiratory status improved, and on the date of her discharge, her lungs are clear with diminished lung sounds at the bases. She has no wheezing or increased work of breathing. The patient also had a suspected urinary tract infection with a urinalysis that was performed via straight cath, that showed 4 to 6 rbc's and bacteria. Subsequently, urine culture was negative. It is recommended that she have a repeat urinalysis with microscopic evaluation performed in the outpatient setting. It is possible that this was just secondary to dehydration and trauma from the cath. The patient's left foot pain was evaluated with no acute findings per x-ray. Her uric acid level was normal. She takes meloxicam at home and this was continued. Her foot pain and swelling resolved during her hospitalization, such that she could resume weightbearing without pain and was back to her normal ambulatory ability with walker assist. The patient had low potassium during her hospitalization, which was corrected with oral potassium. She will be continued on supplementation at discharge. The patient had some loose stools/diarrhea during her hospitalization and stool studies were performed, which were negative except for positive Campylobacter. Again, the patient was covered with Levaquin. She will continue this treatment along with a probiotic. Regarding her right basilar pneumonia, the patient will be seeing her repair tech in followup on September 16. She will keep that appointment and will also need a followup chest x-ray in approximately 4 to 6 weeks to confirm clearing of infiltrate. The patient has a history of chronic hypertension, which remained stable during her hospitalization without any adjustments to her home regimen. Dyslipidemia. The patient was continued on her statin during her admission. The patient has a history of tobacco abuse/dependence. She wore a nicotine patch while hospitalized and would like to go home on this. She has been advised not to smoke while on the nicotine patch and I have prescribed a taper with the 21 mg patch for a full 6 weeks, followed by 2 weeks on the 14 mg patch, and then 2 weeks on a 7 mg patch. The patient previously had home health, it sounds like through the [facility] home visit program. She would like to resume this for correction and evaluation for possible needs of PT/OT/ST. I will send a message to her PCP's team to coordinate this on Friday as they are uncertain of the name of the agency at the present time. DISPOSITION: Discharged to home. CONDITION: Good. MEDICATIONS: 1. Mucinex 600 mg p.o. b.i.d. 2. Trelegy Ellipta one inhalation daily. 3. Ventolin per nebulizer q.4 hours. 4. Lipitor 20 mg p.o. at bedtime. 5. Daliresp p.o. daily. 6. Pantoprazole 40 mg p.o. daily. 7. Meloxicam 15 mg p.o. daily. 8. Cozaar 50 mg daily. 9. Prednisone 50 mg p.o. q.a.m. x5 days. 10. Florastor 250 mg p.o. daily x3 days. 11. K-Dur 20 mEq p.o. q.a.m. 12. Levaquin 750 mg p.o. for the last dose on September 12, to complete a 5-day course. 13. Nicoderm CQ 21 mg transdermal daily x6 weeks, then 14 mg transdermal daily x2 weeks, then 7 mg transdermal daily. FOLLOWUP: Follow up with Dr. Che in approximately 7 to 10 days and with her repair tech as scheduled on September 16, 2019. Job ID: [id number]
--- NOTE | 2019-09-14 03:39 | PQF ---
Edith Jean-Baptisteard ROBERT AVELAR DO [id number] CLINICAL DOCUMENTATION CLARIFICATION FORM: POST DISCHARGE Addendum to original discharge summary date: ____ Late entry note date: __ DATE: 09/14/2019 ATTN: ROBERT AVELAR DO Please exercise your independent, professional judgment in responding to the clarification form. Clinical indicators are provided on the bottom of this form for your review Please check appropriate box(s) to clarify if the following diagnosis has been ruled in or ruled out: SEPSIS____(CDI/Coding list diagnosis here) [ ] Ruled in diagnosis [ ] Continue to treat [ ] Resolved [ ] Ruled out diagnosis [ ] Cannot rule out diagnosis [ ] Other diagnosis [ ] Unable to determine In addition, please specify: Present on Admission (POA): [ ] Yes [ ] No [ ] Unable to determine For continuity of documentation, please document condition throughout progress notes and discharge summary. Thank You. CLINICAL INDICATORS - SIGNS / SYMPTOMS / LAB Sepsis - Documented in Emergency Notes pg#12 WBC 12.9 on 09/08 and 13.4 on 09/10 - Documented in Laboratory RR 30 Documented in Emergency Notes pg#3 Pulse 108 - Documented in Emergency Notes pg#3 BP 119/57 - Documented in Vital Signs Fever - Documented in H&P on 09/08 by Devin Che MD RISK FACTORS COPD Exacerbation - Documented in H&P on 09/08 by Devin Che MD Pneumonia - Documented in H&P on 09/08 by Devin Che MD Blood culture*2 negative at 48 hours - Documented in DS on 09/11 by ROBERT AVELAR DO TREATMENTS Started on Empiric antibiotics with Levaquin and Zosyn - Documented in H&P on by Devin Che MD [employer] Win[employer] Viewer (This form is maintained as a part of the permanent medical record) 2014 [email or web address] All Rights Reserved [email or web address] [not provided] MTDD
== END 2019-09-11 18:22 | disposition home or self-care (01) | DRG 190 ==
LOC: BURERS 12:15 → BURMED 13:48
PROVIDERS: ADMIT Family Medicine; ATTEND Family Medicine
DX: J44.1 Chronic obstructive pulmonary disease with (acute) exacerbation (principal); J18.9 Pneumonia, unspecified organism; A04.5 Campylobacter enteritis; J96.10 Chronic respiratory failure, unspecified whether with hypoxia or hypercapnia; J44.0 Chronic obstructive pulmonary disease with (acute) lower respiratory infection; I10 Essential (primary) hypertension; E78.5 Hyperlipidemia, unspecified; F17.210 Nicotine dependence, cigarettes, uncomplicated; M79.671 Pain in right foot; E87.6 Hypokalemia; Z99.81 Dependence on supplemental oxygen; Z90.49 Acquired absence of other specified parts of digestive tract; Z79.899 Other long term (current) drug therapy; K21.9 Gastro-esophageal reflux disease without esophagitis
CPT/HCPCS: 36415; 51701; 71045; 71046; 80048; 80053; 81003; 81015; 82330; 82435; 82803; 83605; 83880; 84132; 84295; 84484; 84550; 85014; 85025; 87040; 87045; 87046; 87086; 87324; 87427; 87449; 87804; 90471; 90732; 94640; 94760; 96361; 96365; 96375; G0009; J1650; J1956; J2543; J2930; J3490; J7620

== ENCOUNTER 2021-07-13 15:23 | Emergency (ER) | payer MEDICARE, MEDICAID ==
[~2021-07-13 15:23] MED LIST: Potassium Chloride 20 MEQ TAB ONE; methylPREDNISolone Sod Succ/PF 125 MG/2 ML VIAL ONE
[2021-07-14 09:32] LABS: #Basophils 0.1 thou/uL (0.0-0.2); #Eosinphils 0.1 thou/uL (0.0-0.7); #Lymphocytes 1.9 thou/uL (1.20-3.40); #Monocytes 0.7 thou/uL (0.11-0.59); #Neutrophils 3.8 thou/uL (1.40-6.50); %Basophils 1.3 % (0.0-1.0); %Lymphocytes 28.9 % (21.0-51.0); %Monocytes 10.5 % (0.0-10.0); %Neutrophils 57.2 % (42.0-75.0); Hemoglobin 13.4 g/dL (12.0-16.0); Mean Corpuscular HGB CONC 31.3 g/dL (32.0-36.0); Mean Corpuscular Hemoglobin 27.8 pg (27.0-31.0); Mean Corpuscular Volume 88.9 fL (78.0-98.0); Mean Platelet Volume 9.2 fL (7.4-10.4); Platelet Count 234 thou/uL (130-400); RBC Distribution Width 13.3 % (11.5-14.5); Red Blood Cell (RBC) Count 4.81 mill/uL (4.20-5.40); White Blood Cell (WBC) Count 6.7 thou/uL (4.8-10.8)
[2021-07-14 10:10] LABS: Sodium 141 mmol/L (136-145); Troponin I Less than 0.010 ng/mL (< 0.028)
[2021-07-14 10:13] LABS: Chloride 93 mmol/L (98-107); Potassium 2.6 mmol/L (3.5-5.1)
[2021-07-14 10:14] LABS: Anion Gap 16 mmol/L (10-20); BUN (Urea Nitrogen) 7 mg/dL (9.8-20.1); Calc. Creatinine Clearance 0 mL/min (70-130); Carbon Dioxide 35 mmol/L (23-31)
[2021-07-14 10:15] LABS: Bilirubin, Total 0.8 mg/dL (0.2-1.2); Glucose 93 mg/dL (83-110)
[2021-07-14 10:16] LABS: ALT (SGPT) 11 U/L (8-55); AST (SGOT) 15 U/L (5-34); Albumin 3.6 g/dL (3.4-4.8); Alkaline Phosphatase 54 U/L (40-110); Protein, Total 6.6 g/dL (5.8-8.1)
== END 2021-07-13 18:12 | disposition home or self-care (01) ==
LOC: BURERS 15:23
DX: J44.9 Chronic obstructive pulmonary disease, unspecified (principal); E87.6 Hypokalemia; Z20.822 Contact with and (suspected) exposure to COVID-19
CPT/HCPCS: 36415; 71045; 80053; 83880; 84484; 85025; 96372; J2930; J7620

== ENCOUNTER 2022-02-12 15:07 | Emergency (ER) | payer MEDICARE, MEDICAID ==
[2022-02-12 16:04] LABS: ALT (SGPT) 14 U/L (8-55); AST (SGOT) 14 U/L (5-34); Albumin 3.8 g/dL (3.4-4.8); Alkaline Phosphatase 46 U/L (40-110); Anion Gap 12 mmol/L (10-20); BUN (Urea Nitrogen) 11 mg/dL (9.8-20.1); Band 1 % (5-11); Bilirubin, Total 0.5 mg/dL (0.2-1.2); Calc. Creatinine Clearance 0 mL/min (70-130); Calcium 9.1 mg/dL (7.8-10.44); Carbon Dioxide 30 mmol/L (23-31); Chloride 103 mmol/L (98-107); Eosinophils 2 % (0-10); Globulin 2.4 g/dL (2.4-3.5); Glucose 90 mg/dL (83-110); Hemoglobin 13.8 g/dL (12.0-16.0); Lymphocytes 35 % (21-51); MDiff Complete? YES; Mean Corpuscular HGB CONC 33.1 g/dL (32.0-36.0); Mean Corpuscular Volume 87.5 fL (78.0-98.0); Mean Platelet Volume 8.7 fL (7.4-10.4); Monocytes 5 % (0-10); Neutrophil 54 % (42-75); Platelet Count 233 thou/uL (130-400); Potassium 4.7 mmol/L (3.5-5.1); Protein, Total 6.2 g/dL (5.8-8.1); RBC Distribution Width 14.5 % (11.5-14.5); Reactive Lymphocytes 2 % (0-10); Red Blood Cell (RBC) Count 4.76 mill/uL (4.20-5.40); Sodium 140 mmol/L (136-145); White Blood Cell (WBC) Count 8.5 thou/uL (4.8-10.8)
[2022-02-12] MEDS ORDERED: methylPREDNISolone Sod Succ/PF 125 MG/2 ML VIAL ONE (16:06)
== END 2022-02-12 17:20 | disposition home or self-care (01) ==
LOC: BURERS 15:07
DX: J44.1 Chronic obstructive pulmonary disease with (acute) exacerbation (principal); I11.0 Hypertensive heart disease with heart failure; I50.9 Heart failure, unspecified; F17.210 Nicotine dependence, cigarettes, uncomplicated; Z79.899 Other long term (current) drug therapy; Z79.51 Long term (current) use of inhaled steroids
CPT/HCPCS: 36415; 71045; 80053; 83605; 83880; 84484; 85025; 87040; 87804; 93005; 94760; J2930; J7620

== ENCOUNTER 2022-02-26 09:17 | Emergency (ER) | payer MEDICARE, MEDICAID ==
[2022-02-26] MEDS ORDERED: methylPREDNISolone Sod Succ/PF 125 MG/2 ML VIAL ONE (09:35)
[2022-02-26] MEDS ORDERED: Albuterol Sulfate 2.5 mg/3 ml Neb ONE (09:35)
[2022-02-26] MEDS ORDERED: Ipratropium Bromide 2.5 ml Neb ONE ×2 (09:35→09:42)
[2022-02-26 09:43] LABS: #Basophils 0.1 thou/uL (0.0-0.2); #Eosinphils 0.1 thou/uL (0.0-0.7); #Lymphocytes 2.1 thou/uL (1.20-3.40); #Monocytes 0.9 thou/uL (0.11-0.59); #Neutrophils 6.4 thou/uL (1.40-6.50); %Basophils 0.7 % (0.0-1.0); %Eosinophils 1.4 % (0.0-10.0); %Lymphocytes 21.7 % (21.0-51.0); %Monocytes 9.3 % (0.0-10.0); Hemoglobin 13.8 g/dL (12.0-16.0); Mean Corpuscular HGB CONC 32.4 g/dL (32.0-36.0); Mean Corpuscular Hemoglobin 28.5 pg (27.0-31.0); Mean Corpuscular Volume 87.9 fL (78.0-98.0); Mean Platelet Volume 8.6 fL (7.4-10.4); Platelet Count 212 thou/uL (130-400); RBC Distribution Width 15.2 % (11.5-14.5); Red Blood Cell (RBC) Count 4.85 mill/uL (4.20-5.40); White Blood Cell (WBC) Count 9.5 thou/uL (4.8-10.8)
[2022-02-26 09:50] LABS: Base Excess-Venous 3.9 mmol/L (-2.0 to 3.0); Bicarbonate (HCO3v) 30.3 mmol/L (22.0-28.0); CO2 Tension (PvCO2) 51.9 mmHg (42.0-51.0); Calcium, Ionized 1.16 mmol/L (1.15-1.33); Chloride 103 mmol/L (98-107); Potassium 3.9 mmol/L (3.5-5.1); Sodium 143 mmol/L (138-145); T. Carbon Dioxide 31.9 mmol/L (22.0-28.0)
[2022-02-26] MEDS ORDERED: cefTRIAXone\\ROCEPHIN 1 GM VIAL ONE (09:52)
[2022-02-26 09:58] LABS: ALT (SGPT) 17 U/L (8-55); AST (SGOT) 13 U/L (5-34); Alkaline Phosphatase 51 U/L (40-110); Anion Gap 14 mmol/L (10-20); BUN (Urea Nitrogen) 9 mg/dL (9.8-20.1); Calc. Creatinine Clearance 0 mL/min (70-130); Carbon Dioxide 32 mmol/L (23-31); Chloride 102 mmol/L (98-107); Globulin 2.5 g/dL (2.4-3.5); Glucose 94 mg/dL (83-110); Potassium 3.9 mmol/L (3.5-5.1); Protein, Total 6.5 g/dL (5.8-8.1); Sodium 144 mmol/L (136-145)
== END 2022-02-26 11:56 | disposition home or self-care (01) ==
LOC: BURERS 09:17
DX: J44.1 Chronic obstructive pulmonary disease with (acute) exacerbation (principal); I11.0 Hypertensive heart disease with heart failure; I50.9 Heart failure, unspecified; F17.210 Nicotine dependence, cigarettes, uncomplicated
CPT/HCPCS: 71045; 80053; 82330; 82435; 82803; 83880; 84132; 84295; 84484; 85014; 85025; 93005; 96365; 96375; J0696; J2930; J7611

== ENCOUNTER 2022-04-12 17:38 | Emergency (ER) | payer MEDICARE, MEDICAID ==
[2022-04-12 18:21] LABS: #Basophils 0.1 thou/uL (0.0-0.2); #Eosinphils 0.1 thou/uL (0.0-0.7); #Monocytes 0.8 thou/uL (0.11-0.59); #Neutrophils 5.4 thou/uL (1.40-6.50); %Eosinophils 0.8 % (0.0-10.0); %Lymphocytes 23.8 % (21.0-51.0); %Monocytes 9.4 % (0.0-10.0); Hemoglobin 13.5 g/dL (12.0-16.0); Mean Corpuscular HGB CONC 32.3 g/dL (32.0-36.0); Mean Corpuscular Hemoglobin 29.1 pg (27.0-31.0); Mean Platelet Volume 9.2 fL (7.4-10.4); Platelet Count 221 thou/uL (130-400); Red Blood Cell (RBC) Count 4.66 mill/uL (4.20-5.40); White Blood Cell (WBC) Count 8.2 thou/uL (4.8-10.8)
[2022-04-12 18:44] LABS: ALT (SGPT) 16 U/L (8-55); AST (SGOT) 18 U/L (5-34); Albumin 3.9 g/dL (3.4-4.8); Alkaline Phosphatase 51 U/L (40-110); Anion Gap 15 mmol/L (10-20); BUN (Urea Nitrogen) 8 mg/dL (9.8-20.1); Bilirubin, Total 0.6 mg/dL (0.2-1.2); Calc. Creatinine Clearance 0 mL/min (70-130); Calcium 8.8 mg/dL (7.8-10.44); Carbon Dioxide 28 mmol/L (23-31); Chloride 103 mmol/L (98-107); Globulin 2.2 g/dL (2.4-3.5); Glucose 105 mg/dL (83-110); Potassium 3.4 mmol/L (3.5-5.1); Protein, Total 6.1 g/dL (5.8-8.1); Sodium 143 mmol/L (136-145)
[2022-04-12] MEDS ORDERED: Azithromycin 250 MG TAB ONE (19:08)
== END 2022-04-12 19:15 | disposition home or self-care (01) ==
LOC: BURERS 17:38
DX: J44.0 Chronic obstructive pulmonary disease with (acute) lower respiratory infection (principal); J18.9 Pneumonia, unspecified organism; I11.0 Hypertensive heart disease with heart failure; I50.9 Heart failure, unspecified; F17.210 Nicotine dependence, cigarettes, uncomplicated
CPT/HCPCS: 71046; 80053; 83880; 84484; 85025; 85379; 93005

== ENCOUNTER 2022-05-13 16:56 | Emergency (ER) | payer MEDICARE, MEDICAID ==
[2022-05-13 17:40] LABS: Bilirubin Small (Negative); Blood, Urine Trace (Negative); Clarity Cloudy (Clear); Glucose, Urine (Dipstick) Negative (Negative); Ketone, Urine Negative (Negative); Leukocyte Large (Negative); Nitrite Negative (Negative); Protein, Urine (Dipstick) Negative (Neg-Trace); Specific Gravity, Urine 1.015 (1.005-1.030)
[2022-05-13 17:45] LABS: Hemoglobin 14.3 g/dL (12.0-16.0); Mean Corpuscular HGB CONC 31.2 g/dL (32.0-36.0); Mean Corpuscular Hemoglobin 28.5 pg (27.0-31.0); Mean Corpuscular Volume 91.3 fL (78.0-98.0); Mean Platelet Volume 9.6 fL (7.4-10.4); Platelet Count 187 thou/uL (130-400); RBC Distribution Width 13.8 % (11.5-14.5); White Blood Cell (WBC) Count 5.2 thou/uL (4.8-10.8)
[2022-05-13] MEDS ORDERED: Acetaminophen 500 MG TAB ONE (17:46)
[2022-05-13 17:48] LABS: WBC/HPF 21-50 HPF (0-3)
[2022-05-13 17:49] LABS: Bacteria/HPF 4+ HPF (None Seen); RBC/HPF 0-3 HPF (0-3); Trichomonas/HPF 1+ HPF (None Seen)
[2022-05-13 17:50] LABS: ALT (SGPT) 14 U/L (8-55); AST (SGOT) 27 U/L (5-34); Alkaline Phosphatase 59 U/L (40-110); Anion Gap 15 mmol/L (10-20); BUN (Urea Nitrogen) 26 mg/dL (9.8-20.1); Bilirubin, Total 0.8 mg/dL (0.2-1.2); Calc. Creatinine Clearance 0 mL/min (70-130); Calcium 8.6 mg/dL (7.8-10.44); Carbon Dioxide 26 mmol/L (23-31); Chloride 100 mmol/L (98-107); Estimated GFR 34; Globulin 2.5 g/dL (2.4-3.5); Glucose 146 mg/dL (83-110); Potassium 4.1 mmol/L (3.5-5.1); Protein, Total 6.5 g/dL (5.8-8.1); Sodium 137 mmol/L (136-145)
[2022-05-13 18:03] LABS: Band 9 % (5-11); Lymphocytes 13 % (21-51); MDiff Complete? YES; Monocytes 19 % (0-10); Neutrophil 53 % (42-75); Reactive Lymphocytes 5 % (0-10)
[2022-05-13] MEDS ORDERED: cefTRIAXone\\ROCEPHIN 2 GM VIAL ONE (18:26)
[2022-05-13] MEDS ORDERED: Sodium Chloride 0.9% 100 ML ONE (18:27)
== END 2022-05-13 19:19 | disposition home or self-care (01) ==
LOC: BURERS 16:56
DX: N39.0 Urinary tract infection, site not specified (principal); I10 Essential (primary) hypertension; J43.9 Emphysema, unspecified
CPT/HCPCS: 71045; 80053; 81003; 81015; 84484; 85025; 87086; 93005; 96361; 96365; J0696; J3490

== ENCOUNTER 2022-06-16 11:58 | Emergency (ER) | payer MEDICARE, MEDICAID ==
[2022-06-16 12:22] LABS: #Monocytes 0.5 thou/uL (0.11-0.59); #Neutrophils 6.3 thou/uL (1.40-6.50); %Basophils 0.6 % (0.0-1.0); %Eosinophils 0.5 % (0.0-10.0); %Lymphocytes 12.4 % (21.0-51.0); %Monocytes 6.5 % (0.0-10.0); Hemoglobin 13.7 g/dL (12.0-16.0); Mean Corpuscular HGB CONC 30.6 g/dL (32.0-36.0); Mean Corpuscular Hemoglobin 27.8 pg (27.0-31.0); Mean Platelet Volume 8.5 fL (7.4-10.4); Platelet Count 241 thou/uL (130-400); RBC Distribution Width 13.5 % (11.5-14.5); Red Blood Cell (RBC) Count 4.91 mill/uL (4.20-5.40); White Blood Cell (WBC) Count 7.9 thou/uL (4.8-10.8)
[2022-06-16] MEDS ORDERED: Magnesium 2 GM/50 ML BAG (IN WATER) ONE (12:32)
[2022-06-16] MEDS ORDERED: methylPREDNISolone Sod Succ/PF 125 MG/2 ML VIAL ONE (12:32)
[2022-06-16 12:41] LABS: ALT (SGPT) 14 U/L (8-55); AST (SGOT) 18 U/L (5-34); Albumin 4.2 g/dL (3.4-4.8); Alkaline Phosphatase 52 U/L (40-110); Anion Gap 16 mmol/L (10-20); BUN (Urea Nitrogen) 12 mg/dL (9.8-20.1); Bilirubin, Total 0.6 mg/dL (0.2-1.2); Calc. Creatinine Clearance 0 mL/min (70-130); Calcium 9.3 mg/dL (7.8-10.44); Carbon Dioxide 30 mmol/L (23-31); Chloride 101 mmol/L (98-107); Estimated GFR 71; Globulin 2.8 g/dL (2.4-3.5); Glucose 111 mg/dL (83-110); Potassium 3.9 mmol/L (3.5-5.1); Sodium 143 mmol/L (136-145)
[2022-06-16] MEDS ORDERED: cefTRIAXone\\ROCEPHIN 2 GM VIAL ONE (13:03)
[2022-06-16] MEDS ORDERED: Azithromycin 500 MG VIAL ONE (13:03)
[2022-06-16] MEDS ORDERED: Sodium Chloride 0.9% 100 ML ONE (13:03)
[2022-06-16 13:41] LABS: SARS-CoV-2 NAA Rapid Test Not Detected (NotDetected)
[2022-06-16] MEDS ORDERED: Albuterol Sulfate 2.5 mg/3 ml Neb ONE (16:32)
== END 2022-06-16 16:40 | disposition short-term general hospital (02) ==
LOC: BURERS 11:58
DX: J18.9 Pneumonia, unspecified organism (principal); J44.1 Chronic obstructive pulmonary disease with (acute) exacerbation; I11.0 Hypertensive heart disease with heart failure; I50.9 Heart failure, unspecified; J44.9 Chronic obstructive pulmonary disease, unspecified; F17.210 Nicotine dependence, cigarettes, uncomplicated; Z79.899 Other long term (current) drug therapy; Z20.822 Contact with and (suspected) exposure to COVID-19
CPT/HCPCS: 36415; 71045; 80053; 83880; 84484; 85025; 87040; 93005; 96365; 96366; 96367; 96375; J0456; J0696; J2930; J3475; J3490; J7611; J7620; U0002

== ENCOUNTER 2022-08-31 09:45 | Emergency (ER) | payer MEDICARE, MEDICAID ==
[2022-08-31] MEDS ORDERED: Acetaminophen 500 MG TAB ONE (10:34)
== END 2022-08-31 12:17 | disposition home or self-care (01) ==
LOC: BURERS 09:45
DX: S32.502A Unspecified fracture of left pubis, initial encounter for closed fracture (principal); S83.92XA Sprain of unspecified site of left knee, initial encounter; S43.402A Unspecified sprain of left shoulder joint, initial encounter; S46.912A Strain of unspecified muscle, fascia and tendon at shoulder and upper arm level, left arm, initial encounter; S86.912A Strain of unspecified muscle(s) and tendon(s) at lower leg level, left leg, initial encounter; I11.0 Hypertensive heart disease with heart failure; I50.9 Heart failure, unspecified; J43.9 Emphysema, unspecified; F17.210 Nicotine dependence, cigarettes, uncomplicated; W18.00XA Striking against unspecified object with subsequent fall, initial encounter; Y92.009 Unspecified place in unspecified non-institutional (private) residence as the place of occurrence of the external cause; Z79.899 Other long term (current) drug therapy
CPT/HCPCS: 72192

== ENCOUNTER 2023-03-02 15:39 | Emergency (ER) | payer MEDICARE, MEDICAID ==
[~2023-03-02 15:39] MED LIST changes: +Iopamidol 370 76% 100 ML VIAL ONE; -Potassium Chloride 20 MEQ TAB ONE; -methylPREDNISolone Sod Succ/PF 125 MG/2 ML VIAL ONE
[2023-03-02 15:58] LABS: #Basophils 0.1 thou/uL (0.0-0.2); #Eosinphils 0.2 thou/uL (0.0-0.7); #Lymphocytes 3.4 thou/uL (1.20-3.40); #Monocytes 0.8 thou/uL (0.11-0.59); #Neutrophils 5.3 thou/uL (1.40-6.50); %Basophils 1.1 % (0.0-1.0); %Eosinophils 1.6 % (0.0-10.0); %Lymphocytes 34.8 % (21.0-51.0); %Monocytes 8.6 % (0.0-10.0); %Neutrophils 53.9 % (42.0-75.0); Hemoglobin 14.1 g/dL (12.0-16.0); Mean Corpuscular HGB CONC 30.1 g/dL (32.0-36.0); Mean Corpuscular Hemoglobin 27.5 pg (27.0-31.0); Mean Corpuscular Volume 91.5 fl (78.0-98.0); Mean Platelet Volume 9.8 fL (7.4-10.4); Platelet Count 226 10x3/uL (130-400); RBC Distribution Width 14.7 % (11.5-14.5); Red Blood Cell (RBC) Count 5.12 mill/uL (4.20-5.40); White Blood Cell (WBC) Count 9.8 10x3/uL (4.8-10.8)
[2023-03-02] MEDS ORDERED: Ipratropium/Albuterol 3 ML NEB ONE ×2 (16:01→17:58)
[2023-03-02 16:18] LABS: ALT (SGPT) 12 U/L (8-55); AST (SGOT) 13 U/L (5-34); Albumin 3.9 g/dL (3.4-4.8); Alkaline Phosphatase 61 U/L (40-110); Anion Gap 11 mmol/L (10-20); BUN (Urea Nitrogen) 10 mg/dL (9.8-20.1); Bilirubin, Total 0.9 mg/dL (0.2-1.2); Calc. Creatinine Clearance 0 mL/min (70-130); Calcium 8.8 mg/dL (7.8-10.44); Carbon Dioxide 32 mmol/L (23-31); Chloride 101 mmol/L (98-107); Estimated GFR 68; Globulin 2.5 g/dL (2.4-3.5); Glucose 87 mg/dL (83-110); Lipase 17 U/L (8-78); Magnesium 1.9 mg/dL (1.6-2.6); Potassium 3.3 mmol/L (3.5-5.1); Protein, Total 6.4 g/dL (5.8-8.1); Sodium 141 mmol/L (136-145)
[2023-03-02] MEDS ORDERED: methylPREDNISolone Sod Succ/PF 125 MG/2 ML VIAL ONE (16:29)
[2023-03-02] MEDS ORDERED: Budesonide 0.5 MG/2 ML NEB ONE (16:29)
[2023-03-02 16:37] LABS: Base Excess-Venous 8.6 mmol/L (-2.0 to 3.0); Bicarbonate (HCO3v) 34.6 mmol/L (22.0-28.0); CO2 Tension (PvCO2) 51.3 mmHg (42.0-51.0); Calcium, Ionized 1.15 mmol/L (1.15-1.33); Chloride 98 mmol/L (98-107); Potassium 3.1 mmol/L (3.5-5.1); Sodium 141 mmol/L (138-145); T. Carbon Dioxide 36.2 mmol/L (22.0-28.0); vO2 Saturation-calc 99.8 % (60.0-85.0)
[2023-03-02 17:12] LABS: SARS-CoV-2 NAA Rapid Test Not Detected (NotDetected)
[2023-03-02] MEDS ORDERED: cefTRIAXone (ROCEPHIN) 1 GM VIAL ONE (17:22)
[2023-03-02] MEDS ORDERED: Sodium Chloride 0.9% 100 ML ONE (17:22)
[2023-03-02] MEDS ORDERED: Azithromycin 250 MG TAB ONE (18:52)
[2023-03-02 19:00] LABS: Bilirubin Negative (Negative); Blood, Urine Trace (Negative); Clarity Clear (Clear); Glucose, Urine (Dipstick) Negative (Negative); Ketone, Urine Negative (Negative); Leukocyte Large (Negative); Nitrite Negative (Negative); Protein, Urine (Dipstick) Negative (Neg-Trace); Specific Gravity, Urine 1.015 (1.005-1.030); Urobilinogen 0.2 mg/dL (Less than 2)
[2023-03-02 19:05] LABS: RBC/HPF 0-3 HPF (0-3); Squamous Epithelial 0-3 HPF (0-3)
[2023-03-02 19:06] LABS: Bacteria/HPF 1+ HPF (None Seen)
== END 2023-03-02 18:57 | disposition home or self-care (01) ==
LOC: BURERS 15:39
DX: J44.1 Chronic obstructive pulmonary disease with (acute) exacerbation (principal); J18.9 Pneumonia, unspecified organism; I10 Essential (primary) hypertension; F17.210 Nicotine dependence, cigarettes, uncomplicated; Z20.822 Contact with and (suspected) exposure to COVID-19
CPT/HCPCS: 71045; 71275; 80053; 82330; 82435; 82803; 83605; 83690; 83735; 83880; 84132; 84295; 84484; 85014; 85025; 85379; 87040; 93005; U0002; 36415; 81003; 81015; 96365; 96375; J0696; J2930; J3490; J7620; J7626; Q9967

== ENCOUNTER 2023-03-07 06:37 | Emergency (ER) | payer MEDICARE, MEDICAID ==
[2023-03-07] MEDS ORDERED: Ipratropium/Albuterol 3 ML NEB ONE (07:06)
[2023-03-07] MEDS ORDERED: Budesonide 0.5 MG/2 ML NEB ONE (07:06)
[2023-03-07] MEDS ORDERED: methylPREDNISolone Sod Succ/PF 125 MG/2 ML VIAL ONE (07:06)
[2023-03-07 07:17] LABS: #Basophils 0.1 thou/uL (0.0-0.2); #Eosinphils 0.1 thou/uL (0.0-0.7); #Lymphocytes 2.5 thou/uL (1.20-3.40); #Monocytes 0.9 thou/uL (0.11-0.59); #Neutrophils 5.7 thou/uL (1.40-6.50); %Basophils 0.8 % (0.0-1.0); %Eosinophils 0.5 % (0.0-10.0); %Monocytes 9.6 % (0.0-10.0); %Neutrophils 62.1 % (42.0-75.0); Hemoglobin 12.9 g/dL (12.0-16.0); Mean Corpuscular HGB CONC 31.4 g/dL (32.0-36.0); Mean Corpuscular Hemoglobin 27.8 pg (27.0-31.0); Mean Corpuscular Volume 88.4 fl (78.0-98.0); Mean Platelet Volume 8.8 fL (7.4-10.4); Platelet Count 179 10x3/uL (130-400); RBC Distribution Width 14.4 % (11.5-14.5); Red Blood Cell (RBC) Count 4.66 mill/uL (4.20-5.40); White Blood Cell (WBC) Count 9.1 10x3/uL (4.8-10.8)
[2023-03-07 07:21] LABS: ALT (SGPT) 25 U/L (8-55); AST (SGOT) 20 U/L (5-34); Albumin 3.6 g/dL (3.4-4.8); Alkaline Phosphatase 56 U/L (40-110); Anion Gap 14 mmol/L (10-20); BUN (Urea Nitrogen) 9 mg/dL (9.8-20.1); Bilirubin, Total 0.6 mg/dL (0.2-1.2); Calc. Creatinine Clearance 0 mL/min (70-130); Calcium 8.6 mg/dL (7.8-10.44); Carbon Dioxide 31 mmol/L (23-31); Chloride 100 mmol/L (98-107); Estimated GFR 73; Globulin 2.5 g/dL (2.4-3.5); Glucose 79 mg/dL (83-110); Magnesium 1.8 mg/dL (1.6-2.6); Potassium 3.5 mmol/L (3.5-5.1); Protein, Total 6.1 g/dL (5.8-8.1); Sodium 141 mmol/L (136-145)
[2023-03-07] MEDS ORDERED: Magnesium 2 GM/50 ML BAG (IN WATER) ONE (07:46)
[2023-03-07] MEDS ORDERED: Lorazepam 2 MG/ML VIAL ONE (07:55)
[2023-03-07 09:04] LABS: Troponin I 0.016 ng/mL (< 0.028)
== END 2023-03-07 09:16 | disposition home or self-care (01) ==
LOC: BURERS 06:37
DX: J43.9 Emphysema, unspecified (principal); I10 Essential (primary) hypertension; I50.9 Heart failure, unspecified; F17.210 Nicotine dependence, cigarettes, uncomplicated; Z79.899 Other long term (current) drug therapy
CPT/HCPCS: 36415; 71045; 80053; 83605; 83735; 83880; 84484; 85025; 85379; 93005; 96365; 96375; J2060; J2930; J3475; J7611; J7620; J7626

== ENCOUNTER 2023-03-09 11:30 | Emergency (ER) | payer MEDICARE, MEDICAID ==
[2023-03-09] MEDS ORDERED: Ipratropium/Albuterol 3 ML NEB ONE ×2 (11:50→12:37)
[2023-03-09] MEDS ORDERED: methylPREDNISolone Sod Succ/PF 125 MG/2 ML VIAL ONE (11:50)
[2023-03-09 12:13] LABS: #Eosinphils 0.1 thou/uL (0.0-0.7); #Lymphocytes 1.1 thou/uL (1.20-3.40); #Monocytes 0.7 thou/uL (0.11-0.59); %Basophils 0.4 % (0.0-1.0); %Eosinophils 0.7 % (0.0-10.0); %Lymphocytes 9.9 % (21.0-51.0); %Monocytes 6.4 % (0.0-10.0); %Neutrophils 82.6 % (42.0-75.0); Hemoglobin 13.8 g/dL (12.0-16.0); Mean Corpuscular HGB CONC 31.1 g/dL (32.0-36.0); Mean Corpuscular Hemoglobin 27.9 pg (27.0-31.0); Mean Corpuscular Volume 89.7 fl (78.0-98.0); Mean Platelet Volume 10.8 fL (7.4-10.4); Platelet Count 187 10x3/uL (130-400); RBC Distribution Width 14.6 % (11.5-14.5); Red Blood Cell (RBC) Count 4.93 mill/uL (4.20-5.40); White Blood Cell (WBC) Count 10.8 10x3/uL (4.8-10.8)
[2023-03-09 12:31] LABS: ALT (SGPT) 24 U/L (8-55); AST (SGOT) 14 U/L (5-34); Albumin 3.9 g/dL (3.4-4.8); Alkaline Phosphatase 59 U/L (40-110); Anion Gap 16 mmol/L (10-20); BUN (Urea Nitrogen) 11 mg/dL (9.8-20.1); Bilirubin, Total 0.7 mg/dL (0.2-1.2); Calc. Creatinine Clearance 0 mL/min (70-130); Carbon Dioxide 35 mmol/L (23-31); Chloride 95 mmol/L (98-107); Estimated GFR 72; Globulin 2.4 g/dL (2.4-3.5); Glucose 97 mg/dL (83-110); Magnesium 1.8 mg/dL (1.6-2.6); Potassium 3.1 mmol/L (3.5-5.1); Protein, Total 6.3 g/dL (5.8-8.1); Sodium 143 mmol/L (136-145)
[2023-03-09] MEDS ORDERED: Potassium Chloride 20 MEQ TAB ONE (12:37)
[2023-03-09 12:41] LABS: Bilirubin Negative (Negative); Blood, Urine Trace (Negative); Clarity Clear (Clear); Glucose, Urine (Dipstick) Negative (Negative); Ketone, Urine Negative (Negative); Leukocyte Small (Negative); Nitrite Negative (Negative); Protein, Urine (Dipstick) Negative (Neg-Trace); Urobilinogen 0.2 mg/dL (Less than 2)
[2023-03-09 12:47] LABS: Bacteria/HPF Rare-Few HPF (None Seen); RBC/HPF 0-3 HPF (0-3); Squamous Epithelial 0-3 HPF (0-3); WBC/HPF 0-3 HPF (0-3)
== END 2023-03-09 13:33 | disposition home or self-care (01) ==
LOC: BURERS 11:30
DX: J44.1 Chronic obstructive pulmonary disease with (acute) exacerbation (principal); I11.0 Hypertensive heart disease with heart failure; I50.9 Heart failure, unspecified; F17.210 Nicotine dependence, cigarettes, uncomplicated; Z79.899 Other long term (current) drug therapy
CPT/HCPCS: 36415; 71045; 80053; 81003; 81015; 83605; 83735; 83880; 84484; 85025; 87040; 87077; 87086; 87186; 87804; 93005; 94760; 96374; J2930; J7620

== ENCOUNTER 2023-03-16 07:54 | Emergency (ER) | payer MEDICARE, MEDICAID ==
[2023-03-16] MEDS ORDERED: Ipratropium/Albuterol 3 ML NEB ONE (08:25)
[2023-03-16] MEDS ORDERED: methylPREDNISolone Sod Succ/PF 125 MG/2 ML VIAL ONE (08:25)
[2023-03-16 08:29] LABS: #Basophils 0.1 thou/uL (0.0-0.2); #Eosinphils 0.1 thou/uL (0.0-0.7); #Lymphocytes 1.6 thou/uL (1.20-3.40); #Monocytes 1.1 thou/uL (0.11-0.59); #Neutrophils 9.1 thou/uL (1.40-6.50); %Basophils 0.4 % (0.0-1.0); %Eosinophils 0.5 % (0.0-10.0); %Lymphocytes 13.3 % (21.0-51.0); %Monocytes 9.5 % (0.0-10.0); %Neutrophils 76.3 % (42.0-75.0); Mean Corpuscular HGB CONC 31.1 g/dL (32.0-36.0); Mean Corpuscular Hemoglobin 27.9 pg (27.0-31.0); Mean Corpuscular Volume 89.7 fl (78.0-98.0); Mean Platelet Volume 10.4 fL (7.4-10.4); Platelet Count 170 10x3/uL (130-400); RBC Distribution Width 14.5 % (11.5-14.5); Red Blood Cell (RBC) Count 4.66 mill/uL (4.20-5.40)
[2023-03-16 08:36] LABS: Bilirubin Negative (Negative); Blood, Urine Small (Negative); Glucose, Urine (Dipstick) Negative (Negative); Ketone, Urine Negative (Negative); Leukocyte Large (Negative); Nitrite Negative (Negative); Protein, Urine (Dipstick) Trace mg/dL (Neg-Trace); pH, Urine 6.5 (5.0-9.0)
[2023-03-16 08:43] LABS: Bacteria/HPF 2+ HPF (None Seen); Clarity Hazy (Clear)
[2023-03-16 08:43] LABS: ALT (SGPT) 13 U/L (8-55); AST (SGOT) 11 U/L (5-34); Albumin 3.9 g/dL (3.4-4.8); Alkaline Phosphatase 60 U/L (40-110); Anion Gap 12 mmol/L (10-20); BUN (Urea Nitrogen) 18 mg/dL (9.8-20.1); Bilirubin, Total 0.4 mg/dL (0.2-1.2); Calc. Creatinine Clearance 0 mL/min (70-130); Calcium 8.9 mg/dL (7.8-10.44); Carbon Dioxide 34 mmol/L (23-31); Chloride 100 mmol/L (98-107); Estimated GFR 58; Globulin 2.4 g/dL (2.4-3.5); Glucose 98 mg/dL (83-110); Potassium 3.5 mmol/L (3.5-5.1); Protein, Total 6.3 g/dL (5.8-8.1); Sodium 142 mmol/L (136-145)
[2023-03-16 08:44] LABS: Other Microscopic Description C&S SET UP; Trichomonas/HPF 1+ HPF (None Seen)
[2023-03-16] MEDS ORDERED: Sodium Chloride 0.9% 100 ML ONE (09:26)
[2023-03-16] MEDS ORDERED: cefTRIAXone (ROCEPHIN) 2 GM VIAL ONE (09:26)
[2023-03-16 23:13] LABS: Chlam.trachomatis by PCR,Urine Not Detected (NotDetected); GC N.gonorrhoeae PCR,UrineVOID Not Detected (NotDetected)
== END 2023-03-16 09:53 | disposition home or self-care (01) ==
LOC: BURERS 07:54
DX: J44.1 Chronic obstructive pulmonary disease with (acute) exacerbation (principal); N39.0 Urinary tract infection, site not specified; I11.0 Hypertensive heart disease with heart failure; I50.9 Heart failure, unspecified; F17.210 Nicotine dependence, cigarettes, uncomplicated; Z79.899 Other long term (current) drug therapy
CPT/HCPCS: 36415; 71045; 80053; 81003; 81015; 83880; 84484; 85025; 87086; 87491; 87591; 93005; 94760; 96365; 96375; J0696; J2930; J3490; J7620

== ENCOUNTER 2023-05-29 06:46 | Emergency (ER) | payer MEDICARE, MEDICAID ==
[2023-05-29] MEDS ORDERED: Ipratropium/Albuterol 3 ML NEB ONE ×2 (07:07→07:47)
[2023-05-29 07:14] LABS: #Eosinphils 0.1 thou/uL (0.0-0.7); #Lymphocytes 2.9 thou/uL (1.20-3.40); #Monocytes 0.7 thou/uL (0.11-0.59); #Neutrophils 4.7 thou/uL (1.40-6.50); %Basophils 0.5 % (0.0-1.0); %Eosinophils 0.8 % (0.0-10.0); %Monocytes 8.7 % (0.0-10.0); Hemoglobin 13.2 g/dL (12.0-16.0); Mean Corpuscular HGB CONC 31.6 g/dL (32.0-36.0); Mean Corpuscular Hemoglobin 27.2 pg (27.0-31.0); Mean Corpuscular Volume 86.1 fl (78.0-98.0); Mean Platelet Volume 9.7 fL (7.4-10.4); Platelet Count 175 10x3/uL (130-400); RBC Distribution Width 13.2 % (11.5-14.5); Red Blood Cell (RBC) Count 4.88 mill/uL (4.20-5.40); White Blood Cell (WBC) Count 8.4 10x3/uL (4.8-10.8)
[2023-05-29 07:32] LABS: ALT (SGPT) 12 U/L (8-55); AST (SGOT) 11 U/L (5-34); Albumin 3.7 g/dL (3.4-4.8); Alkaline Phosphatase 49 U/L (40-110); Anion Gap 16 mmol/L (10-20); BUN (Urea Nitrogen) 12 mg/dL (9.8-20.1); Bilirubin, Total 0.8 mg/dL (0.2-1.2); Calc. Creatinine Clearance 0 mL/min (70-130); Calcium 8.7 mg/dL (7.8-10.44); Carbon Dioxide 31 mmol/L (23-31); Chloride 98 mmol/L (98-107); Estimated GFR 69; Globulin 2.3 g/dL (2.4-3.5); Glucose 84 mg/dL (83-110); Potassium 3.9 mmol/L (3.5-5.1); Sodium 141 mmol/L (136-145)
[2023-05-29] MEDS ORDERED: methylPREDNISolone Sod Succ/PF 125 MG/2 ML VIAL ONE (07:37)
== END 2023-05-29 08:16 | disposition home or self-care (01) ==
LOC: BURERS 06:46
DX: J44.1 Chronic obstructive pulmonary disease with (acute) exacerbation (principal); I10 Essential (primary) hypertension; E78.5 Hyperlipidemia, unspecified; F17.210 Nicotine dependence, cigarettes, uncomplicated
CPT/HCPCS: 71046; 80053; 83880; 84484; 85025; 93005; 96374; J2930; J7620

== ENCOUNTER 2023-09-15 14:56 | Emergency (ER) | payer MEDICARE, MEDICAID ==
[2023-09-15 15:25] LABS: #Basophils 0.1 thou/uL (0.0-0.2); #Lymphocytes 1.6 thou/uL (1.20-3.40); #Monocytes 1.5 thou/uL (0.11-0.59); #Neutrophils 7.4 thou/uL (1.40-6.50); %Basophils 0.7 % (0.0-1.0); %Eosinophils 0.1 % (0.0-10.0); %Lymphocytes 14.8 % (21.0-51.0); %Monocytes 14.2 % (0.0-10.0); %Neutrophils 70.2 % (42.0-75.0); Hematocrit 47.4 % (36.0-47.0); Hemoglobin 14.6 g/dL (12.0-16.0); Mean Corpuscular HGB CONC 30.9 g/dL (32.0-36.0); Mean Corpuscular Hemoglobin 27.7 pg (27.0-31.0); Mean Corpuscular Volume 89.6 fl (78.0-98.0); Mean Platelet Volume 9.9 fL (7.4-10.4); Platelet Count 199 10x3/uL (130-400); Red Blood Cell (RBC) Count 5.29 mill/uL (4.20-5.40); White Blood Cell (WBC) Count 10.5 10x3/uL (4.8-10.8)
[2023-09-15 15:40] LABS: ALT (SGPT) 8 U/L (8-55); AST (SGOT) 9 U/L (5-34); Albumin 3.7 g/dL (3.4-4.8); Alkaline Phosphatase 56 U/L (40-110); Anion Gap 15 mmol/L (10-20); BUN (Urea Nitrogen) 11 mg/dL (9.8-20.1); Bilirubin, Total 1.7 mg/dL (0.2-1.2); Calc. Creatinine Clearance 0 mL/min (70-130); Calcium 9.2 mg/dL (7.8-10.44); Carbon Dioxide 28 mmol/L (23-31); Chloride 100 mmol/L (98-107); Estimated GFR 80; Globulin 2.8 g/dL (2.4-3.5); Glucose 85 mg/dL (83-110); Potassium 3.6 mmol/L (3.5-5.1); Protein, Total 6.5 g/dL (5.8-8.1); Sodium 139 mmol/L (136-145)
[2023-09-15] MEDS ORDERED: Ipratropium/Albuterol 3 ML NEB ONE (16:29)
== END 2023-09-15 17:59 | disposition home or self-care (01) ==
LOC: BURERS 14:56
DX: R07.9 Chest pain, unspecified (principal); M25.561 Pain in right knee; I10 Essential (primary) hypertension; F17.210 Nicotine dependence, cigarettes, uncomplicated; Z79.899 Other long term (current) drug therapy; E78.5 Hyperlipidemia, unspecified; J44.9 Chronic obstructive pulmonary disease, unspecified
CPT/HCPCS: 70450; 80053; 85025; J7620